=== PATIENT | male | born 1985 | race African-American/Black ===

== ENCOUNTER 2025-01-01 13:15 | Emergency (ER) | payer OTHER ==
[~2025-01-01] VITALS: Ht 180.3 cm; Wt 80.7 kg
[2025-01-01 13:20] VITALS: TEMP 98.4
[2025-01-01] MEDS: KETOROLAC TROMETHAMINE 30 MG/ML VIAL IM STA (13:55)
[2025-01-01] MEDS: KETOROLAC TROMETHAMINE 10 MG TAB PO STA (14:24)
[2025-01-01] MEDS ORDERED: NAPROXEN250 MG PO (15:41)
[2025-01-01 15:48] VITALS: PULSE 92; RESP 18; O2SAT 99
== END 2025-01-01 16:11 | disposition home or self-care (01) ==
LOC: ER 13:28
DX: R10.31 Right lower quadrant pain (principal)
CPT/HCPCS: 76870; 93976; 99283; J1885

== ENCOUNTER 2025-01-08 15:51 | Emergency (ER) | payer OTHER ==
[~2025-01-08] VITALS: Ht 180.3 cm; Wt 80.7 kg
[~2025-01-08 15:51] MED LIST: NAPROXEN250 MG PO
[2025-01-08 16:00] VITALS: PULSE 84; RESP 18; TEMP 98.2; O2SAT 98
[2025-01-08] MEDS ORDERED: KETOROLAC TROMETHAMINE 30 MG/ML VIAL ONE (16:48)
[2025-01-08] MEDS: KETOROLAC TROMETHAMINE 30 MG/ML VIAL IM STA (16:56)
== END 2025-01-08 18:07 | disposition home or self-care (01) ==
LOC: ER 17:00
DX: R10.31 Right lower quadrant pain (principal)
CPT/HCPCS: 99283; J1885